=== PATIENT | female | born 1960 | race Caucasian/White ===

== ENCOUNTER 2018-02-26 08:24 | Day surgery (SDC) | payer BC ==
[~2018-02-26] VITALS: Ht 160 cm; Wt 74.3 kg
[~2018-02-26 08:24] MED LIST: AMLO5 PO; ASCO500; B-12250 MCG; CHOL10002; Enablex15 MG PO; FISH1000; GINKGO BILOBA30 MG; LOVA40 PO; MAGCHL64ER; MELO7.5 PO; METCAR750 PO; Multiple Vitam1 EAC1; NAPR500 PO; OXYB5 PO; STOOL SOFTENER50 MG; TOCO400; VENL37.5ER PO
[2018-02-26] MEDS ORDERED: ESTR2 (09:24)
[2018-02-26] MEDS ORDERED: Flurbiprofen100 MG (09:24)
[2018-02-26] MEDS ORDERED: Pravachol20 MG (09:25)
== END 2018-02-26 11:00 | disposition home or self-care (01) ==
LOC: ORSCSDS 08:24
PROVIDERS: Internal Medicine Gastroenterology
PROC: 0DBH8ZX Excision of Cecum, Via Natural or Artificial Opening Endoscopic, Diagnostic (ICD-10-PCS; principal; 2018-02-26 09:45)
PROC: 0DBK8ZX Excision of Ascending Colon, Via Natural or Artificial Opening Endoscopic, Diagnostic (ICD-10-PCS; principal; 2018-02-26 09:45)
DX: Z12.11 Encounter for screening for malignant neoplasm of colon (principal); Z86.010 Personal history of colon polyps; D12.0 Benign neoplasm of cecum; D12.2 Benign neoplasm of ascending colon; K57.30 Diverticulosis of large intestine without perforation or abscess without bleeding; Z79.899 Other long term (current) drug therapy
CPT/HCPCS: 88305; J1980; J7120

== ENCOUNTER 2019-04-04 16:10 | Emergency (ER) | payer BC ==
[~2019-04-04] VITALS: Ht 160 cm; Wt 73.0 kg
[~2019-04-04 16:10] MED LIST changes: +CYCL10 PO; +ESTR2; +Flurbiprofen100 MG; +Pravachol20 MG
[2019-04-04 17:01] LABS: BASOPHILS ABSOLUTE AUTO 0.05 K/mm3 (0.00-0.23); BASOPHILS PERCENT AUTO 1 % (0-2); EOSINOPHILS ABSOLUTE AUTO 0.12 K/mm3 (0.00-0.68); EOSINOPHILS PERCENT AUTO 2 % (0-6); Hematocrit 41.6 % (33.0-51.0); Hemoglobin 14.3 g/dL (11.5-16.0); IMMATURE GRAN ABSOLUTE AUTO 0.02 K/mm3 (0.00-0.10); IMMATURE GRAN PERCENT AUTO 0 % (0-1); LYMPHOCYTES ABSOLUTE AUTO 2.23 K/mm3 (0.84-5.20); LYMPHOCYTES PERCENT AUTO 35 % (21-46); MONOCYTES ABSOLUTE AUTO 0.54 K/mm3 (0.16-1.47); MONOCYTES PERCENT AUTO 9 % (4-13); Mean Corpuscular HGB 30.2 pg (26.0-34.0); Mean Corpuscular HGB Conc 34.4 g/dL (31.5-36.5); Mean Corpuscular Volume 88 fL (80-100); Mean Platelet Volume 10.7 fL (9.1-12.4); NEUTROPHILS ABSOLUTE AUTO 3.39 K/mm3 (1.96-9.15); NEUTROPHILS PERCENT AUTO 53 % (41-73); Platelet Count 261 K/mm3 (150-400); RDW Coefficient Variation 12.3 % (11.7-14.2); RDW Standard Deviation 40.1 fL (35.1-46.3); Red Blood Cell Count 4.73 M/mm3 (3.80-5.20); White Blood Cell Count 6.35 K/mm3 (4.00-11.30)
[2019-04-04 17:18] LABS: Alanine Aminotransfer (ALT/SGP 34 U/L (12-78); Albumin, Blood 3.9 g/dL (3.4-5.0); Albumin/Globulin Ratio 1.1 (0.8-1.8); Alk Phos 64 U/L (50-136); Anion Gap 5 mmol/L (6-16); Aspartate Aminotrans (AST/SGOT 34 U/L (12-37); Bilirubin, Total 0.4 mg/dL (0.1-1.0); Blood Urea Nitrogen 23 mg/dL (8-24); CO2, Blood 25 mmol/L (21-32); Calcium, Blood 9.3 mg/dL (8.5-10.1); Chloride, Blood 109 mmol/L (98-108); Creatinine, Blood 0.89 mg/dL (0.40-1.00); Globulin, Blood 3.6 g/dL (2.2-4.0); Glomerular Filtration Rate >60 (60-); Glucose, Blood 88 mg/dL (70-99); Potassium, Blood 4.3 mmol/L (3.5-5.5); Sodium, Blood 139 mmol/L (136-145); Total Protein, Blood 7.5 g/dL (6.4-8.2); Troponin I <0.015 ng/mL (0.000-0.040)
[2019-04-04] MEDS ORDERED: Motion Sickness25 M1 PO (18:30)
== END 2019-04-04 18:46 | disposition home or self-care (01) ==
LOC: ER 16:10
PROVIDERS: Physician Assistant
DX: S09.90XA Unspecified injury of head, initial encounter (principal); R42 Dizziness and giddiness; V80.010A Animal-rider injured by fall from or being thrown from horse in noncollision accident, initial encounter
CPT/HCPCS: 36415; 70450; 80053; 84484; 85025; 99284-25

== ENCOUNTER 2023-05-01 12:59 | Day surgery (SDC) | payer BC ==
[~2023-05-01] VITALS: Ht 157.5 cm; Wt 74.2 kg
[~2023-05-01 12:59] MED LIST changes: +Motion Sickness25 M1 PO
[2023-05-01] MEDS ORDERED: DICLOFENAC SOD100 GM (13:34)
[2023-05-01] MEDS ORDERED: MAGNESIUM OXID400 M5 (13:34)
[2023-05-01] MEDS ORDERED: Flurbiprofen100 MG (13:34)
[2023-05-01] MEDS ORDERED: TRAZ50 (13:34)
[2023-05-01] MEDS ORDERED: NEURAPTINE30 GM (13:34)
[2023-05-01] MEDS ORDERED: VENL25 (13:35)
[2023-05-01] MEDS ORDERED: Sanctura20 MG (13:35)
[2023-05-01 15:31] VITALS: BP 115/74
== END 2023-05-01 15:33 | disposition home or self-care (01) ==
LOC: ORSCSDS 12:59
PROVIDERS: Internal Medicine Gastroenterology
PROC: 0DJD8ZZ Inspection of Lower Intestinal Tract, Via Natural or Artificial Opening Endoscopic (ICD-10-PCS; principal; 2023-05-01 14:30)
DX: Z12.11 Encounter for screening for malignant neoplasm of colon (principal); K57.30 Diverticulosis of large intestine without perforation or abscess without bleeding; Z86.010 Personal history of colon polyps; Z83.71 Family history of colonic polyps; G47.33 Obstructive sleep apnea (adult) (pediatric); Z79.899 Other long term (current) drug therapy
CPT/HCPCS: J0461; J2001; J2405; J2704; J7120; Q9968

== ENCOUNTER → 2024-05-08 | Outpatient (CLI) | payer BC ==
[~2024-05-08] MED LIST changes: +DICLOFENAC SOD100 GM; +MAGNESIUM OXID400 M5; +NEURAPTINE30 GM; +Sanctura20 MG; +TRAZ50; +VENL25
[2024-05-08 15:51] LABS: Bacterial Vaginosis PCR Negative (NEGATIVE); Candida glabrata-krusei, PCR NOT DETECTED (NOT DETECT)
[2024-05-08 16:29] LABS: Candida Group, PCR DETECTED (NOT DETECT)
== END ==
LOC: LAB 12:55 → LAB SHORT 12:55
PROVIDERS: Internal Medicine
DX: Z12.4 Encounter for screening for malignant neoplasm of cervix (principal); N76.0 Acute vaginitis
CPT/HCPCS: 87481; 87661; 87801